=== PATIENT | female | born 1995 | race Caucasian/White ===

== ENCOUNTER 2016-08-13 05:38 | Emergency (ER) | payer BC, OTHER ==
[2016-08-13] MEDS ORDERED: TRAMADOL HCL 50 MG TABLET PO ONE (07:30)
--- NOTE | 2016-08-13 07:33 | ER Document Report ---
ED General - General Chief Complaint: Foot Pain Stated Complaint: WC/FOOT PAIN TRAVEL OUTSIDE OF THE [place] IN LAST 30 DAYS: No - HPI Patient complains to provider of: right foot pain Notes: Patient with a injury to her right foot causing chronic pain and tenderness patient states she is now confined to a walking boot has following up with sports medicine. States while working a colleague stepped on her foot and now has severe pain. Patient is resting currently upon my evaluation patient was noted to ambulated to the bathroom prior to my evaluation denies fevers chills nausea vomiting - Related Data Allergies/Adverse Reactions: No Known Allergies Allergy (Unverified 12/14/12 13:09) Past Medical History - Social History Smoking Status: Never Smoker Chew tobacco use (# tins/day): No Frequency of alcohol use: None Drug Abuse: None Family History: None Patient has suicidal ideation: No Patient has homicidal ideation: No Renal/ Medical History: Denies: Hx Peritoneal Dialysis Past Surgical History: Reports: Hx Tonsillectomy - adenoidectomy - Immunizations Immunizations up to date: Yes Hx Diphtheria, Pertussis, Tetanus Vaccination: Yes Review of Systems - Review of Systems Constitutional: No symptoms reported EENT: No symptoms reported Cardiovascular: No symptoms reported Respiratory: No symptoms reported Gastrointestinal: No symptoms reported Genitourinary: No symptoms reported Female Genitourinary: No symptoms reported Musculoskeletal: Other - Foot pain Skin: No symptoms reported Hematologic/Lymphatic: No symptoms reported Neurological/Psychological: No symptoms reported Physical Exam - Vital signs Vitals: Temp Pulse Resp BP Pulse Ox 98.1 F 74 16 141/93 H 100 08/13/16 05:43 08/13/16 05:43 08/13/16 05:43 08/13/16 05:43 08/13/16 05:43 Interpretation: Normal - General General appearance: Appears well, Alert - HEENT Head: Normocephalic, Atraumatic Eyes: Normal Pupils: PERRL - Respiratory Respiratory status: No respiratory distress Chest status: Nontender Breath sounds: Normal Chest palpation: Normal - Cardiovascular Rhythm: Regular Heart sounds: Normal auscultation Murmur: No - Abdominal Inspection: Normal Distension: No distension Bowel sounds: Normal Tenderness: Nontender Organomegaly: No organomegaly - Back Back: Normal, Nontender - Extremities General upper extremity: Normal inspection, Nontender, Normal color, Normal ROM , Normal temperature General lower extremity: Normal inspection, Nontender, Normal color, Normal ROM , Normal temperature, Normal weight bearing. No: Shelia's sign - Neurological Neuro grossly intact: Yes Cognition: Normal Orientation: AAOx4 [place] Coma Scale Eye Opening: Spontaneous [place] Coma Scale Verbal: Oriented [place] Coma Scale Motor: Obeys Commands [place] Coma Scale Total: 15 Speech: Normal Motor strength normal: LUE, RUE, LLE, RLE Sensory: Normal - Psychological Associated symptoms: Normal affect, Normal mood - Skin Skin Temperature: Warm Skin Moisture: Dry Skin Color: Normal Course - Re-evaluation Re-evalutation: 08/13/16 13:59 Patient with a negative x-ray negative examination will be discharged home - Vital Signs Vital signs: Temp Pulse Resp BP Pulse Ox 98.1 F 73 16 121/71 99 08/13/16 07:46 08/13/16 07:46 08/13/16 07:46 08/13/16 07:46 08/13/16 07:46 Discharge - Discharge Clinical Impression: acute on chronic foot pain Condition: Stable Disposition: HOME, SELF-CARE Instructions: Chronic Pain Control ([facility]), Myalagia (Muscle Pain) ([facility]) Additional Instructions: Your evaluation shows no critical injury to your foot. Your x-rays also negative for any signs of fracture. Please follow-up with your specialist for further evaluation. You take medication as prescribed. Continue to take Tylenol and Motrin for pain control Prescriptions: Ibuprofen [Motrin 600 Mg Tablet] 600 mg PO TID #30 tablet Tramadol HCl [Ultram 50 mg Tablet] 50 mg PO ASDIR PRN #14 tablet PRN Reason: Forms: Return to Work
[2016-08-13 07:49] VITALS: BP 121/71
== END 2016-08-13 07:50 | disposition home or self-care (01) ==
LOC: ER 05:38
DX: M79.671 Pain in right foot (principal); G89.29 Other chronic pain; X58.XXXA Exposure to other specified factors, initial encounter
CPT/HCPCS: 99283